=== PATIENT | male | born 1930 | race Caucasian/White ===

== ENCOUNTER 2018-05-27 22:28 | Emergency (ER) | payer OTHER ==
[~2018-05-27] VITALS: Ht 175.3 cm; Wt 77.1 kg
[2018-05-27] MEDS ORDERED: NEOMY/BACITRA/POLYMYXIN B OINT UD PACKET TP ONE ×2 (23:00→23:05)
[2018-05-27 23:37] VITALS: BP 139/96
== END 2018-05-27 23:38 | disposition home or self-care (01) ==
LOC: ER 22:30
DX: S51.012A Laceration without foreign body of left elbow, initial encounter (principal); S80.211A Abrasion, right knee, initial encounter; E78.00 Pure hypercholesterolemia, unspecified; E03.9 Hypothyroidism, unspecified; Z88.0 Allergy status to penicillin; Z88.1 Allergy status to other antibiotic agents; Z88.8 Allergy status to other drugs, medicaments and biological substances; W18.39XA Other fall on same level, initial encounter; Y93.89 Activity, other specified; Y92.89 Other specified places as the place of occurrence of the external cause; Y99.8 Other external cause status
CPT/HCPCS: A4663